=== PATIENT | male | born 1995 | race Caucasian/White ===

== ENCOUNTER 2020-06-17 02:32 | Emergency (ER) | payer OTHER ==
[~2020-06-17] VITALS: Ht 180.3 cm; Wt 81.6 kg
--- NOTE | 2020-06-17 02:32 | NUR ---
0230 -- [facility] TO CHAIR (C).
[2020-06-17 02:33] VITALS: BP 116/70
--- NOTE | 2020-06-17 02:40 | NUR ---
MARCUS ROSAS AT CHAIR SIDE FOR MEDICAL EVALUATION.
--- NOTE | 2020-06-17 02:45 | NUR ---
PT ASSESSMENT COMPLETED BY MARCUS ROSAS, NO NURSING INTERVENTIONS NEEDED AT THIS TIME.
--- NOTE | 2020-06-17 02:47 | NUR ---
PATIENT BIB [facility]. PATIENT EXAMINED BY DR. ROSAS. PATIENT MEDICALLY CLEARED AND RELEASED IN CUSTODY IN STABLE CONDITION. ORIGINAL PRE-BOOK FORM GIVEN TO OFFICER SRIKANTH JAFFE #[id number].
== END 2020-06-17 02:47 ==
LOC: MED 02:32
DX: S50.311A Abrasion of right elbow, initial encounter (principal); F10.99 Alcohol use, unspecified with unspecified alcohol-induced disorder; V89.2XXA Person injured in unspecified motor-vehicle accident, traffic, initial encounter; Y93.89 Activity, other specified; Y92.89 Other specified places as the place of occurrence of the external cause; Y99.8 Other external cause status
CPT/HCPCS: 99283